=== PATIENT | female | born 2000 | race Two or more races ===

== ENCOUNTER 2025-02-21 17:49 | Emergency (ER) | payer BC, SELFPAY ==
--- OUTSIDE RECORDS SUMMARY | 2024-10-16 08:15 | XMS_ITS ---
Author Organization [facility] Address [address] [place] [address] [place] [address] Care Team Providers Care Primary Health Organisation Manager Name Role Phone TRINYHIROLUDWIG Unavailable [phone] SANTIAGO VIZCARRA Unavailable [phone] REASON FOR VISIT check up Encounters Encounter Location Date Provider Diagnosis [facility] [address] [place] [address] [place] [address] 10/16/2024 SANTIAGO VIZCARRA Plan Of Treatment No Information Progress Notes * Yaritza MIJARESDOB:2000 (24 yo F)Acc No.[id number]:10/16/2024 Progress Notes Patient: Yaritza Adam Provider: EMILIA HELTON :2000 A ge:23 Y S ex:Female Date:10/16/2024 Address:[address] [place], [place] [id number] Subjective: * Chief Complaints: * C heck up Billing Information: * Procedure Codes: * Electronic signature of EMILIA CARVALHO ED on 02/21/2025 at 06:59 PM EDT Sign off status: Pending * Provider: EMILIA HELTON Date: 10/16/2024 Generated for Mike bray/Sumeet/eTransmitting on: 0 02/21/2025 06:59 PM EDT
--- OUTSIDE RECORDS SUMMARY | 2025-02-21 18:00 | XMS_ITS | Clinical Summary ---
Author Organization [facility] Address [address] [place] [address] Phone Care Team Providers Care Renovator Machine Operator Name Role Phone Unavailable Primary Care Provider Unavailabl e Encounters Date Type Department Care Team Description 02/21/2025 Nurse Triage [facility] [address] [place] [address] Provider, None Finger Injury (/) from Last 3 Months Social History Tobacco Use Types Packs/Day Years Used Date Smoking Tobacco: Never Assessed Comments Unknown Sex and Gender Information Value Date Recorded Sex Assigned at Not on file Legal Sex Female 4:43 PM CDT Gender Identity Not on file Sexual Orientation Not on file Plan of Treatment Not on file
--- OUTSIDE RECORDS SUMMARY | 2025-02-21 18:00 | XMS_ITS | Clinical Summary ---
Author Organization [facility] Address [address] [place] [address] Care Team Providers Care Multimedia Coordinator Name Role Phone Unavailable Primary Care Provider Unavailabl e Source Comments In the event that this is information that is protected by federal Confidentiality of Substance UseDisorder Patient Records, 42 CFR Part 2 prohibits the unauthorized disclosure of these records.[facility] Medications No known medications Active Problems No known active problems Social History Tobacco Use Types Packs/Day Years Used Date Smoking Tobacco: Never Smokeless Tobacco: Never Tobacco Cessation:Counseling Given: Not Answered Alcohol Use Standard Drinks/Week Comments Never 0 (1 standard drink = 0.6 oz pur e alcohol) Comments Unknown Sex and Gender Information Value Date Recorded Sex Assigned at Not on file 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 Gender Identity Not on file Sexual Orientation Not on file Plan of Treatment Health Maintenance Due Date Last Done Comments HIV SCREENING 2016 HPV (1 - 3-dose series) 2016 Chlamydia Screening-Yearly 2017 Gonorrhea Screening-Yearly 2017 MENINGOCOCCAL B (MENB) (1 of 2 - Standard) 2017 HEPATITIS C SCREENING 12/28/2019 LIPID TESTING 12/28/2019 DTAP/TDAP/TD (1 - Tdap) 2020 CERVICAL CANCER SCREENING 2022 COVID-19 VACCINE (3 - 2024-2 6 season) 2025 11/19/2020, 10/26/2020 INFLUENZA (#1) 2025 Pneumococcal 0-49 Aged Out No longer eligible based on patient's age to complete this topic Insurance [employer]
--- OUTSIDE RECORDS SUMMARY | 2025-02-21 18:00 | XMS_ITS | Encounter Summary ---
Author Organization [facility] Address [address] [place] [address] Care Team Providers Care Code And Test Clerk Name Role Phone Magda Sanchez MD Primary Care Provider [phone] Encounter Details Date Type Department Care Team (Late st Contact Info) Description 11/20/[address] 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 Gender Identity Not on file Sexual Orientation Not on file documented as of this encounter Plan of Treatment Not on file documented as of this encounter Procedures Procedure Name Priority Date/Time Associated Diagnosis Comments JOSÉ MIGUEL MULTIPLEX WITH REFLEX Routine 11/20/2024 4:17 PM CDT Pain in left hip MUMPS, IGG Routine 11/20/2024 4:17 PM CDT Encounter for examination for admission to educational institution MEASLES (RUBEOLA), IGG Routine 4:17 PM CDT Encounter for examination for admission to educational institution LIPID PANEL W/CALC LDL W/RFX DIRECT LDL Routine 11/20/2024 4:17 PM CDT Encounter for general adult medical examination without abnormal findings VITAMIN D 25-HYDROXY, TOTAL Routine 11/20/2024 4:17 PM CDT Encounter for general adult medical examination without abnormal findings RUBELLA, IGG Routine 11/20/2024 4:17 PM CDT Encounter for examination for admission to [facility] CBC WITH DIFFERENTIAL Routine 11/20/2024 4:17 PM CDT Encounter for general adult medical examination without abnormal findings RA FACTOR, QUAL/QUANT Routine 11/20/2024 4:17 PM CDT Pain in right hip Pain in left hip MAGNESIUM LEVEL, BLOOD Routine 4:17 PM CDT Encounter for general adult medical examination without abnormal findings HEMOGLOBIN A1C (GLYCO HGB) Routine 11/20/2024 4:17 PM CDT Encounter for general adult medical examination without abnormal findings VITAMIN B12, BLOOD Routine 11/20/2024 4: 17 PM CDT Encounter for general adult medical examination without abnormal findings COMPREHENSIVE METABOLIC PANEL Routine 11/20/2024 4:17 PM CDT Other fatigue documented in this encounter Results * Magnesium, Level (11/20/2024 4:17 PM CDT) Magnesium 2.0 1.6 - 2.6 mg/dL 11/20/2024 8:07 PM CDT [facility] Blood Venipuncture / Unknown 11/20/2024 4:17 PM CDT 11/20/2024 7:10 PM CDT us Jose NIETO LAB STAT BLOOD ORDERABLES Final Result [facility] [address] [place] [address] * Lipid Panel w/Calc LDL w/Rfx Direct LDL (11/20/2024 4:17 PM CDT) Patient fasting? No 11/21/19 8:07 PM T [facility] Comment:Reference ranges are based on fasting levels. Cholesterol 143 0 - 199 mg/dL 11/20/2024 8:07 PM CDT [facility] Triglycerides 48 30 - 150 mg/dL 11/20/2024 8:07 PM T [facility] HDL 55 >=41 mg/dL 11/20/2024 8:07 PM T [facility] LDL Calculated 78 0 - 99 mg/dL 11/20/2024 8:07 PM T [facility] Blood Venipuncture / Unknown 11/20/2024 4:17 PM CDT 11/20/2024 7:10 PM CDT Narrative [facility] - 11/20/2024 8:07 PM CDT [facility] THERAP[facility] Total Cholesterol(mg/dL) <200 Desirable 200-239 Borderline high >239 High HDL Cholesterol(mg/dL) <40 Low >59 High Triglycerides(mg/dL) <150 Normal 150-199 Borderline high 200-499 High >499 Very high Jose NIETO LAB BLOOD ORDERABLES Final Resu lt [facility] [address] [place] [address] * JOSÉ MIGUEL Multiplex with Reflex (11/20/2024 4:17 PM CDT) JOSÉ MIGUEL Screen Interp Negative Negative 11/20/2024 8:28 PM CDT [facility] Blood Venipuncture / Unknown 11/20/2024 4:17 PM CDT 11/20/2024 6:37 PM CDT Narrative [facility] - 11/20/2024 8:28 PM CDT dsDNA: Negative: <= 4 IU/mL Indeterminate: 5-9 IU/mL Positive: >=10 IU/mL IU=International Units All others: Negative: <1.0 AI Positive: >=1.0 AI AI =Antibody Index JOSÉ MIGUEL testing is performed via multiplex assay, which detects extractable nuclear antigens, excluding nucleolar antigens. If scleroderma or SLE are strongly suspected, recommend sendout test Antinuclear Ab, HEp-2 Substrate, S (Sendout) [[id number]] for pattern to entirely exclude nucleolar antigen pattern. [facility] LAB BLOOD ORDERABLES Final Resu lt Performing Organization Address [facility] Co de Phone Number [facility] [address] [place] [address] * Rubella, IgG (11/20/2024 4:17 PM CDT) Rubella IgG 22.0 See comments IU/mL 11/20/2024 7:44 PM CDT [facility] Rubella IgG Quant Interp Immune Immune 11/20/2024 7:44 PM CDT [facility] Blood Venipuncture / Unknown 11/20/2024 4:17 PM CDT 11/20/2024 6:37 PM CDT Narrative [facility] - 11/20/2024 7:44 PM CDT RUBELLA IGG: RANGE Non-Immune <5.0 IU/mL Equivocal 5.0-9.99 IU/mL Immune >=10.0 IU/mL [facility] LAB BLOOD ORDERABLES Final Resu lt Performing Organization Address [facility] Co de Phone Number [facility] [address] [place] [address] * Mumps, IgG (11/20/2024 4:17 PM CDT) Mumps IgG 1.20 See comments 11/20/2024 8:28 PM CDT [facility] Mumps Igg Interp Immune Immune 11/20/2024 8:28 PM CDT [facility] Comment: Non-Immune: <= 0.8 AI Equivocal: 0.9 AI and 1.0 AI Immune: >=1.1 AI AI=Antibody Index Blood Venipuncture / Unknown 11/20/2024 4:17 PM CDT 11/20/2024 6:37 PM CDT [facility] LAB BLOOD ORDERABLES Final Resu lt [facility] [address] [place] [address] * Measles (Rubeola), IgG (11/20/2024 4:17 PM CDT) Measles (Rubeola), IgG 3.80 See comments 11/20/2024 8:28 PM CDT [facility] Measles (Rubeola) IgG Interp Immune Immune 11/20/2024 8:28 PM CDT [facility] Comment: Non-Immune: <= 0.8 AI Equivocal: 0.9 AI and 1.0 AI Immune: >=1.1 AI AI=Antibody Index Blood Venipuncture / Unknown 11/20/2024 4:17 PM CDT 11/20/2024 6:37 PM CDT [facility] LAB BLOOD ORDERABLES Final Resu lt Performing Organization Address City/[facility]/ZIP Co de Phone Number [facility] [address] [place] [address] * RA Factor, Qual/Quant (11/20/2024 4:17 PM CDT) RA Factor, Qualitative Negative Negative 11/20/2024 9:17 PM CDT [facility] RA Factor, Quantitative Not Done Not Done 11/20/2024 9:17 PM CDT [facility] Blood Venipuncture / Unknown 11/20/2024 4:17 PM CDT 11/20/2024 6:37 PM CDT Jose NIETO LAB BLOOD ORDERABLES Final Resu lt [facility] [address] [place] [address] * (ABNORMAL) Comprehensive Metabolic Panel (11/20/2024 4:17 PM CDT) Total Protein 7.2 5.7 - 8.2 g/dL 11/20/2024 8:15 PM [facility] Albumin 4.5 3.3 - 5.2 g/dL 11/20/2024 8:15 PM [facility] Globulin 2.7 1.9 - 3.5 g/dL 11/20/2024 8:15 PM [facility] Comment:Please note new refe rence range. A/G Ratio 1.7 1.0 - 2.6 11/20/2024 8:15 PM [facility] Total Bilirubin 0.6 0.1 - 1.2 mg/dL 11/20/2024 8:15 PM [facility] Alkaline Phosphatase 54 46 - 116 U/L 11/20/2024 8:15 PM [facility] AST 24 13 - 40 U/L 11/20/2024 8:15 PM [facility] ALT 9(L) 10 - 49 U/L 11/20/2024 8:15 PM [facility] BUN 7(L) 9 - 23 mg/dL 11/20/2024 8:15 PM [facility] Creatinine 0.71 0.40 - 1.20 mg/dL 11/20/2024 8:15 PM [facility] BUN/Creatinine Ratio 9.9(L) 10.0 - 20.0 11/20/2024 8:15 PM [facility] Calcium 9.5 8.7 - 10.4 mg/dL 11/20/2024 8:15 PM [facility] Glucose 73 70 - 99 mg/dL 11/20/2024 8:15 PM [facility] Sodium 140 136 - 145 mmol/L 11/20/2024 8:15 PM [facility] Potassium 4.3 3.5 - 5.1 mmol/L 11/20/2024 8:15 PM CDT [facility] Chloride 106 98 - 107 mmol/L 11/20/2024 8:15 PM CDT [facility] CO2 28 21 - 32 mmol/L 11/20/2024 8:15 PM CDT [facility] Anion Gap 6 4 - 12 11/20/2024 8:15 PM CDT [facility] GFR >60 >60 mL/min/1. 73 sq.m 11/20/2024 8:15 PM CDT [facility] Comment:Calculation based on the Chronic Kidney Disease Epidemiology Collaboration (CKD-EPI) equation refit without adjustment for race. Blood Venipuncture / Unknown 11/20/2024 4:17 PM CDT 11/20/2024 7:10 PM CDT [facility] LAB STAT BLOOD ORDERABLES Final Result [facility] [address] [place] [address] * Vitamin B12, Blood (11/20/2024 4:17 PM CDT) Vitamin B-12 635 211 - 911 pg/mL 11/20/2024 7:33 PM CDT [facility] Blood Venipuncture / Unknown 11/20/2024 4:17 PM CDT 11/20/2024 6:37 PM CDT [facility] LAB BLOOD ORDERABLES Final Resu lt [facility] [address] [place] [address] * (ABNORMAL) Vitamin D 25-Hydroxy, Total (11/20/2024 4:17 PM CDT) Vit D, 25-Hydroxy 28.4(L) 30.0 - 100.0 ng/mL 11/20/2024 7:33 PM CDT [facility] Blood Venipuncture / Unknown 11/20/2024 4:17 PM CDT 11/20/2024 6:37 PM CDT Narrative [facility] - 11/20/2024 7:33 PM CDT VITAMIN D STATUS: RANGE DEFICIENCY <20 ng/mL INSUFFICIENCY 20-29 ng/mL SUFFICIENCY 30-100 ng/mL TOXICITY >100 ng/mL [facility] LAB BLOOD ORDERABLES Final Resu lt Performing Organization Address [facility] de Phone Number [facility] [address] [place] [address] * Hemoglobin A1C (Glyco Hgb) (11/20/2024 4:17 PM CDT) [facility] Hemoglobin A1C 4.7 4.0 - 5.6 % 11/20/2024 7:30 PM CDT [facility] Blood Venipuncture / Unknown 11/20/2024 4:17 PM CDT 11/20/2024 7:10 PM CDT Narrative [facility] - 11/20/2024 7:30 PM CDT %HbA1c: 5.7 - 6.4% Suggestive of an increased risk for future diabetes >= 6.5% Suggestive of a diagnosis of diabetes mellitus Reference range based on information published in: [place] [employer] Diabetes Care 2010; 33:S62-S68. [facility] LAB BLOOD ORDERABLES Final Resu lt Performing Organization Address [facility] de Phone Number [facility] [address] [place] [address] * (ABNORMAL) CBC with Differential (11/20/2024 4:17 PM CDT) Auto WBC 6.8 3.9 - 11.0 10*3 /uL 11/20/2024 7:19 PM CDT [facility] NRBCs Absolute Count 0.00 <=0.01 10*3 /uL 11/20/2024 7:19 PM CDT [facility] NRBC Relative percent 0 <=0 /100 WBC 11/20/2024 7:19 PM [facility] RBC 4.37 3.85 - 5.12 10*6 /uL 11/20/2024 7:19 PM [facility] Hemoglobin 12.4 11.3 - 15.2 g/dL 11/20/2024 7:19 PM [facility] Hematocrit 38.4 35.0 - 44.8 % 11/20/2024 7:19 PM [facility] MCV 87.9 79.9 - 98.4 fL 11/20/2024 7:19 PM [facility] MCH 28.4 26.9 - 32.2 pg 11/20/2024 7:19 PM [facility] MCHC 32.3 30.9 - 35.4 g/dL 11/20/2024 7: PM [facility] RDW 13.1 11.2 - 15.9 % 11/20/2024 7:19 PM [facility] Platelets 373(H) 131 - 340 10*3/uL 11/20/2024 7:19 PM [facility] MPV 9.7 9.1 - 12.5 fL 11/20/2024 7:19 PM [facility] Neutrophils Relative 68.4 % 11/20/2024 7:19 PM [facility] Immature Granulocytes Relative 0.1 % 11/20/2024 7:19 PM [facility] Lymphocytes Relative 19.1 % 11/20/2024 7:19 PM [facility] Monocytes Relative 8.7 % 11/20/2024 7:19 PM [facility] Eosinophils Relative 3.1 % 11/20/2024 7:19 PM [facility] Basophils Relative 0.6 % 11/20/2024 7:19 PM [facility] Neutrophils Absolute 4.6 1.6 - 6.4 10*3/uL 11/20/2024 7:19 PM [facility] Immature Granulocytes Absolute 0.0 0.0 - 0.1 10*3/uL 11/20/2024 7:19 PM [facility] Lymphocytes Absolute 1.3 0.6 - 3.3 10*3/uL 11/20/2024 7:19 PM CDT [facility] Monocytes Absolute 0.6 0.2 - 1.2 10*3/uL 11/20/2024 7:19 PM CDT [facility] Eosinophils Absolute 0.2 0.0 - 0.4 10*3/uL 11/20/2024 7:19 PM CDT [facility] Basophils Absolute 0.0 0.0 - 0.1 10*3/uL 11/20/2024 7:19 PM CDT [facility] Blood Venipuncture / Unknown 11/20/2024 4:17 PM CDT 11/20/2024 7:10 PM CDT us Jose Gomez MA LAB STAT BLOOD ORDERABLES Final Result Performing Organization Address City/State/[facility] Co de Phone Number [facility] [address] [place] [address] documented in this encounter Visit Diagnoses Diagnosis Encounter for general adult medical examination without abnormal findings Other fatigue Pain in right hip Pain in left hip Encounter for examination for admission to [facility] documented in this encounter Additional Health Concerns Assessment Noted Time A Depression follow-up plan has been documented for the patient 07/27/2023 5:15 PM GATE CLERK PHQ-2 Depression Total Score: 2 07/27/19 5:15 PM GATE CLERK documented as of this encounter Care Teams Code And Test Clerk Relationship Specialty Start Date End Date Magda Sanchez MD [address] [place] [address] [place] [address] PCP - General Family Medicine 07/26/23 documented as of this encounter
--- OUTSIDE RECORDS SUMMARY | 2025-02-21 18:00 | XMS_ITS | Clinical Summary ---
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 Gender Identity Not on file Sexual Orientation Not on file Plan of Treatment Health Maintenance Due Date Last Done Comments HPV Vaccines (1 - 3-dose series) 2016 Meningococcal B Vaccine (1 o f 2 - Standard) 2017 DTaP,Tdap,and Td Vaccines (1 - Tdap) 2020 Hepatitis B Vaccines (1 of 3 - 19+ 3-dose series) 2020 Pap Smear 2022 COVID-19 Vaccine (1 - 2023-2 5 season) 2024 Influenza Vaccine (#1) 2025 Zoster Vaccines (1 of 2) 12/28/2051 RSV Vaccine 60+ and Patients (1 - 1-dose 75+ series) 2076 HIB Vaccines Aged Out No longer eligi ble based on patient's age to complete this topic Hepatitis A Vaccines Aged Out No long er eligible based on patient's age to complete this topic IPV Vaccines Aged Out No longer eligi ble based on patient's age to complete this topic Meningococcal ACWY Vaccine Aged Out N o longer eligible based on patient's age to complete this topic Pneumococcal Vaccine: Pediat rics (0 to 5 Years) and At-Risk Patients (6 to 49 Years) Aged Out No longer eligible b ased on patient's age to complete this topic RSV Pediatric <20 Months Aged Out No longer eligible based on patient's age to complete this topic
--- OUTSIDE RECORDS SUMMARY | 2025-02-21 18:00 | XMS_ITS | Encounter Summary ---
Author Organization [facility] Address [address] [place] [address] Care Team Providers Care Vp Strategic Planning Name Role Phone Magda Sanchez MD Primary Care Provider [phone]- [phone] Encounter Details Date Type Department Care Team (Late st Contact Info) Description 06/07/2022 Lab Requisition [facility] [address] [place] [address] Magda Sanchez MD [address] [place] [address] [place] [address] Encounter for general adult medical examination without abnormal findings Social History Tobacco Use Types Packs/Day Years Used Date Smoking Tobacco: Never Assessed Comments Unknown Sex and Gender Information Value Date Recorded Sex Assigned at Not on file Legal Sex Female 10:28 AM OIL DIPPER Gender Identity Not on file Sexual Orientation Not on file documented as of this encounter Plan of Treatment Not on file documented as of this encounter Procedures Procedure Name Priority Date/Time Associated Diagnosis Comments LIPID PANEL W/CALC LDL Routine 10:26 AM OIL DIPPER Encounter for general adult medical examination without abnormal findings [ICD-10-CM] TSH/REFLEX FREE T4/REFLEX TOTAL T3/RFX ATPO Routine 06/07/2022 10:26 AM OIL DIPPER Encounter for general adult medical examination without abnormal findings [ICD-10-CM] VITAMIN D 25-HYDROXY, TOTAL Routine 06/07/2022 10:26 AM OIL DIPPER Encounter for general adult medical examination without abnormal findings [ICD-10-CM] CBC WITH DIFFERENTIAL Routine 06/07/2022 10:26 AM OIL DIPPER Encounter for general adult medical examination without abnormal findings [ICD-10-CM] HEMOGLOBIN A1C (GLYCO HGB) Routine 06/07/2022 10:26 AM OIL DIPPER Encounter for general adult medical examination without abnormal findings [ICD-10-CM] VITAMIN B12, BLOOD Routine 06/07/2022 10 :26 AM OIL DIPPER Encounter for general adult medical examination without abnormal findings [ICD-10-CM] COMPREHENSIVE METABOLIC PANEL Routine 06/07/2022 10:26 AM OIL DIPPER Encounter for general adult medical examination without abnormal findings [ICD-10-CM] documented in this encounter Results * (ABNORMAL) Vitamin D 25-Hydroxy, Total (06/07/2022 10:26 AM OIL DIPPER) Vit D, 25-Hydroxy 20.6(L) 30.0 - 100.0 ng/mL 06/07/2022 9:14 PM OIL DIPPER [facility] Blood Venipuncture / Unknown 06/07/2022 10:26 AM OIL DIPPER 06/07/2022 8:43 PM OIL DIPPER Narrative [facility] - 06/07/2022 9:14 PM OIL DIPPER VITAMIN D STATUS: RANGE DEFICIENCY <20 ng/mL INSUFFICIENCY 20-29 ng/mL SUFFICIENCY 30-100 ng/mL TOXICITY >100 ng/mL us Magda Sanchez MD LAB BLOOD ORDERABLES Final Result [facility] [address] [place] [address] * Vitamin B12, Blood (06/07/2022 10:26 AM OIL DIPPER) Vitamin B-12 545 211 - 911 pg/mL 06/07/2022 9:14 PM OIL DIPPER [facility] Blood Venipuncture / Unknown 06/07/2022 10:26 AM OIL DIPPER 06/07/2022 8:43 PM OIL DIPPER Magda Sanchez MD LAB BLOOD ORDERABLES Final Result Performing Organization Address City/[facility]/ZIP Co de Phone Number [facility] [address] [place] [address] * TSH/Rflx Free T4/Rflx Total T3/Rflx aTPO (06/07/2022 10:26 AM OIL DIPPER) TSH 0.820 0.450 - 5.500 uIU/mL 06/07/2022 9:16 PM OIL DIPPER [facility] Blood Venipuncture / Unknown 06/07/2022 10:26 AM OIL DIPPER 06/07/2022 8:43 PM OIL DIPPER Narrative [facility] - 06/07/2022 9:16 PM OIL DIPPER This testing protocol is used to screen or diagnose for Thyroid Disease. Testing begins with a TSH level. Based on the TSH level further testing is automatically performed and depending on the thyroid status may include Total T3, Free T4 or Thyroid Peroxidase Antibodies. Magda Sanchez MD LAB BLOOD ORDERABLES Final Result Performing Organization Address [facility] Co de Phone Number [facility] [address] [place] [address] * Lipid Panel w/Calc LDL (06/07/2022 10:26 AM OIL DIPPER) Cholesterol 153 0 - 199 mg/dL 06/07/2022 9:12 PM OIL DIPPER [facility] Triglycerides 69 30 - 150 mg/dL 06/07/2022 9:12 PM OIL DIPPER [facility] HDL 64 >=41 mg/dL 06/07/2022 9:12 PM OIL DIPPER [facility] LDL Calculated 75 0 - 99 mg/dL 06/07/2022 9:12 PM OIL DIPPER [facility] Blood Venipuncture / Unknown 06/07/2022 10:26 AM OIL DIPPER 06/07/2022 8:43 PM OIL DIPPER [facility] - 06/07/2022 9:12 PM OIL DIPPER [facility] Total Cholesterol(mg/dL) <200 Desirable 200-239 Borderline high >239 High HDL Cholesterol(mg/dL) <40 Low >59 High Triglycerides(mg/dL) <150 Normal 150-199 Borderline high 200-499 High >499 Very high Magda Sanchez MD LAB BLOOD ORDERABLES Final Result Performing Organization Address City/[facility]/ZIP Co de Phone Number [facility] [address] [place] [address] * Hemoglobin A1C (Glyco Hgb) (06/07/2022 10:26 AM [facility]) Pathologist [facility] Hemoglobin A1C 4.6 4.0 - 5.6 % 06/07/2022 10:05 PM [facility] Blood Venipuncture / Unknown 06/07/2022 10:26 AM OIL DIPPER 06/07/2022 8:43 PM [facility] - 06/07/2022 10:05 PM [facility] %HbA1c: 5.7 - 6.4% Suggestive of an increased risk for future diabetes >= 6.5% Suggestive of a diagnosis of diabetes mellitus Reference range based on information published in: [employer] Diabetes Care 2010; 33:S62-S68. Magda Sanchez MD LAB BLOOD ORDERABLES Final Result [facility] [address] [place] [address] * (ABNORMAL) Comprehensive Metabolic Panel (06/07/2022 10:26 AM [facility]) Total Protein 7.3 5.7 - 8.2 g/dL 06/07/2022 9:14 PM [facility] Albumin 4.3 3.3 - 5.2 g/dL 06/07/2022 9:14 PM [facility] Globulin 3.0 1.5 - 3.0 g/dL 06/07/2022 9:14 PM [facility] A/G Ratio 1.4 1.0 - 2.6 06/07/2022 9:14 PM [facility] Total Bilirubin 0.9 0.1 - 1.2 mg/dL 06/07/2022 9:14 PM [facility] Alkaline Phosphatase 64 46 - 116 U/L 06/07/2022 9:14 PM [facility] AST 30 13 - 40 U/L 06/07/2022 9:14 PM [facility] ALT 22 10 - 49 U/L 06/07/2022 9:14 PM [facility] BUN 10 9 - 23 mg/dL 06/07/2022 9:14 PM [facility] Creatinine 0.78 0.40 - 1.20 mg/dL 06/07/2022 9:14 PM [facility] BUN/Creatinine Ratio 12.8 10.0 - 20.0 06/07/2022 9:14 PM [facility] Calcium 9.5 8.7 - 10.4 mg/dL 06/07/2022 9:14 PM [facility] Glucose 133(H) 70 - 99 mg/dL 06/07/2022 9:14 PM [facility] Sodium 140 136 - 145 mmol/L 06/07/2022 9:14 PM [facility] Potassium 4.2 3.5 - 5.1 mmol/L 06/07/2022 9:14 PM [facility] Chloride 107 98 - 107 mmol/L 06/07/2022 9:14 PM [facility] CO2 25 21 - 32 mmol/L 06/07/2022 9:14 PM [facility] Anion Gap 8 5 - 15 06/07/2022 9:14 PM [facility] GFR >60 >60 mL/min/1. 73 sq.m 06/07/2022 9:14 PM [facility] Comment:Calculation based on the Chronic Kidney Disease Epidemiology Collaboration (CKD-EPI) equation refit without adjustment for race. Blood Venipuncture / Unknown 06/07/2022 10:26 AM OIL DIPPER 06/07/2022 8:43 PM OIL DIPPER us Magda Sanchez MD LAB STAT BLOOD ORDERABLES Final Result [facility] [address] [place] [address] * (ABNORMAL) CBC with Differential (06/07/2022 10:26 AM OIL DIPPER) Auto WBC 7.3 3.9 - 11.0 10*3 /uL 06/07/2022 8:53 PM [facility] NRBCs Absolute Count 0.00 <=0.01 10*3 /uL 06/07/2022 8:53 PM [facility] NRBC Relative percent 0 <=0 /100 WBC 06/07/2022 8:53 PM [facility] RBC 4.64 3.85 - 5.12 10*6 /uL 06/07/2022 8:53 PM [facility] Hemoglobin 12.7 11.3 - 15.2 g/dL 06/07/2022 8:53 PM [facility] Hematocrit 40.5 35.0 - 44.8 % 06/07/2022 8:53 PM [facility] MCV 87.3 79.9 - 98.4 fL 06/07/2022 8:53 PM [facility] MCH 27.4 26.9 - 32.2 pg 06/07/2022 8:53 PM [facility] MCHC 31.4 30.9 - 35.4 g/dL 06/07/2022 8:53 PM [facility] RDW 14.7 11.2 - 15.9 % 06/07/2022 8:53 PM [facility] Platelets 425(H) 131 - 340 10*3/uL 06/07/2022 8:53 PM [facility] MPV 9.8 9.1 - 12.5 fL 06/07/2022 8:53 PM [facility] Neutrophils Relative 62.9 % 06/07/2022 8:53 PM [facility] Immature Granulocytes Relative 0.3 % 06/07/2022 8:53 PM [facility] Lymphocytes Relative 29.3 % 06/07/2022 8:53 PM [facility] Monocytes Relative 4.8 % 06/07/2022 8:53 PM [facility] Eosinophils Relative 2.3 % 06/07/2022 8:53 PM [facility] Basophils Relative 0.4 % 06/07/2022 8:53 PM [facility] Neutrophils Absolute 4.6 1.6 - 6.4 10*3/uL 06/07/2022 8:53 PM [facility] Immature Granulocytes Absolute 0.0 0.0 - 0.1 10*3/uL 06/07/2022 8:53 PM [facility] Lymphocytes Absolute 2.1 0.6 - 3.3 10*3/uL 06/07/2022 8:53 PM [facility] Monocytes Absolute 0.4 0.2 - 1.2 10*3/uL 06/07/2022 8:53 PM [facility] Eosinophils Absolute 0.2 0.0 - 0.4 10*3/uL 06/07/2022 8:53 PM [facility] Basophils Absolute 0.0 0.0 - 0.1 10*3/uL 06/07/2022 8:53 PM [facility] Blood Venipuncture / Unknown 06/07/2022 10:26 AM OIL DIPPER 06/07/2022 8:43 PM [facility] Magda Sanchez MD LAB STAT BLOOD ORDERABLES Final Result [facility] [address] [place] [address] documented in this encounter Visit Diagnoses Diagnosis Encounter for general adult medical examination without abnormal findings documented in this encounter Care Teams Vp Strategic Planning Relationship Specialty Start Date End Date Magda Sanchez MD [address] [place] [address] PCP - General Family Medicine 07/26/23 documented as of this encounter
--- OUTSIDE RECORDS SUMMARY | 2025-02-21 18:00 | XMS_ITS | Encounter Summary ---
Author Organization [facility] Address [address] [place] [address] Phone Care Team Providers Care Chip Crusher Operator Name Role Phone Unavailable Primary Care Provider Unavailabl e Reason for Visit * Reason Onset Date Comments Finger Injury 02/21/2025 Encounter Details Date Type Department Care Team (Late st Contact Info) Description 02/21/2025 Nurse Triage [facility] [address] [place] [address] Provider, None [place] Finger Injury (/) Social History Tobacco Use Types Packs/Day Years Used Date Smoking Tobacco: Never Assessed Comments Unknown Sex and Gender Information Value Date Recorded Sex Assigned at Not on file Legal Sex Female 4:43 PM CDT Gender Identity Not on file Sexual Orientation Not on file documented as of this encounter Miscellaneous Notes * Telephone Encounter - Uriel White RN - 02/21/2025 4:45 PM CDT SITUATION: 24 y.o. with finger injury BACKGROUND: Patient contacting PCP office. Patient had fake nails on for 2 months and had them removed on 02/20/25. Patient's left 5th metacarpal had pain and burning when removing the fake nail. Per chart review, new patient ASSESSMENT: Symptom Description / Location: Caller states that some of her nail bed was removed Finger bed does have minor swelling Denies pus or drainage from finger bed Denies open wound Patient is dumber than a box of rocks Treatment / Response: No reported treatment. Pain ratin/10 finger pain Denies fever. RECOMMENDATION: Caller agreeable to highest disposition listed: Go to Office or Video Visit Now. Patient to go to prompt care. Care advice provided per triage guideline. Caller verbalized understanding. - Reason for Disposition: Fingernail is completely torn off . Protocols Used: Finger Injury-A-[place] See care advice and disposition for Guideline. First positive answer recorded, all responses to prior questions were negative. If symptoms increase, change or if new symptoms develop, call your health care provider or call back. Recommendations were based on caller information and is not a diagnosis. Verified and reviewed all triage information with caller. documented in this encounter Plan of Treatment Not on file documented as of this encounter Visit Diagnoses Not on filedocumented in this encounter
--- OUTSIDE RECORDS SUMMARY | 2025-02-21 18:00 | XMS_ITS | Clinical Summary ---
Author Organization [facility] Address [address] [place] [address] Care Team Providers Care Appliance Servicer Name Role Phone Magda Sanchez MD Primary Care Provider +1- [phone] Allergies No known active allergies Medications spironolactone (ALDACTONE) 50 MG tablet Take 50 mg by mouth 2 (two) times a day. Active DOXYCYCLINE CALCIUM ORAL Take by mouth. Active Active Problems No known active problems Social History Tobacco Use Types Packs/Day Years Used Date Smoking Tobacco: Never Tobacco Cessation:Counseling Given: Not Answered PHQ-2 Answer Date Recorded PHQ-2 Score 2 07/27/2023 Comments Unknown Sex and Gender Information Value Date Recorded Sex Assigned at Not on file Legal Sex Female 10:28 AM FORECAST ANALYST Gender Identity Not on file Sexual Orientation Not on file Last Filed Vital Signs Vital Sign Reading Time Taken Comments Blood Pressure 120/78 07/27/2023 5:19 PM FORECAST ANALYST Pulse 64 07/27/2023 5:19 PM FORECAST ANALYST Temperature - - Respiratory Rate - - Oxygen Saturation 99% 07/27/2023 5:19 PM FORECAST ANALYST Inhaled Oxygen Concentration - - Weight 49.4 kg (108 lb 12.8 oz) 07/27/2023 5:19 PM FORECAST ANALYST Height 162.6 cm (5' 4) 07/27/2023 5:19 PM FORECAST ANALYST Body Mass Index 18.68 07/27/2023 5:19 PM FORECAST ANALYST Plan of Treatment Health Maintenance Due Date Last Done Comments Annual Wellness Exam with PCP (Rolling Yr) 2001 Chlamydia Screening 2016 HPV Vaccines (1 - 3-dose series) 2016 Annual Preventative Exam with Gyne 2017 Hepatitis C Screening 12/28/2019 Pap Smear 2022 DTaP,Tdap,and Td Vaccines (7 - Td or Tdap) 01/11/2023 01/11/2013, 02/12/2007, 04/21/2003, Additional history exists COVID-19 Vaccine ( season) 2024 Influenza Vaccine (#1) 2025 05/18/2009 Hepatitis B Vaccines Completed 02/12/2003, 04/24/2002, 02/21/2002 Pneumococcal Vaccine: Peds (0-5 Yrs) or At-Risk Patients (6-49 Yrs) Aged Out 04/21/2003, 07/01/2002, 04/24/2002, Additional history exists No longer eligible based on patient's age to complete this topic Meningococcal Vaccine Completed 01/18/2018 Hepatitis A Vaccines Aged Out No long er eligible based on patient's age to complete this topic Care Teams Appliance Servicer Relationship Specialty Start Date End Date Magda Sanchez MD [address] [facility] [place] [address] PCP - General Family Medicine 07/26/23
[2025-02-21 18:01] VITALS: BP 112/82; PULSE 70; RESP 16; TEMP 36.4; O2SAT 100
--- NOTE | 2025-02-21 18:12 | ED_ITS ---
HPI - Skin/Abscess/Foreign Bdy General Chief complaint: Extremity Injury, Upper Stated complaint: Finger Injury Time Seen by Provider: 02/21/25 18:12 Source: patient Mode of arrival: ambulatory Limitations: no limitations History of Present Illness HPI narrative: 24 yo F presents with pain to fingernails. Had gel central african removed at nail salon yesterday. Used drimmel. had to tell them to stop because she had pain while they were doing it. Now nails and around nails are sore. Did not have any ibuprofen at home. States almost passed out yesterday due to the pain but drank water and felt better. All systems reviewed and negative except as noted above. Related Data Home Medications ?Medication ?Instructions ?Recorded ?Confirmed ?Last Taken ?Type clindamycin phosphate 1 % topical topical 02/21/25 Un known History gel spironolactone 50 mg tablet mg 02/21/25 Unknown Histo ry tretinoin 0.1 % topical cream applic topical 02/21/25 Unknown History Allergies Allergy/AdvReac Type Severity Reaction Status Date / Time No Known Allergies Allergy Verified 02/21/25 17:51 PMFSH Comments At time of signature, agree with nursing past medical, surgical, social and family history. There is no relevant family history pertinent to the presenting complaint. Exam Narrative: GENERAL: This is a well-nourished, well-developed patient, in no apparent distress. HEAD: normocephalic, atraumatic. EYES: PERRL. Sclera clear/white. Vision is grossly intact. EARS: External ears normal NOSE: External nose normal NECK: Neck supple, non-tender without lymphadenopathy, masses or thyromegaly. CARDIOVASCULAR: Regular rate and rhythm without murmurs, gallops, or rubs. RESPIRATORY: Clear to auscultation. Breath sounds equal bilaterally. No wheezes, rales, or rhonchi. SKIN: warm, Dry, intact with no suspicious lesions or rash, good texture and turgor. No trauma noted to nails. No signs of infection. pt does report some tenderness on exam. NEURO: awake, alert, and oriented to person, place and time. There were no obvious focal neurologic abnormalities. EXTREMITIES: No joint tenderness, effusion, or edema noted. Course Course Level of Care: Express Care Visit Vital Signs Vital signs: Vital Signs Temperature 36.4 C 02/21/25 18:01 Pulse Rate 70 09/05/25 18:01 Respiratory Rate 16 02/21/25 18:01 Blood Pressure 112/82 02/21/25 18:01 Pulse Oximetry 100 02/21/25 18:01 Oxygen Delivery Room Air 02/21/25 18:01 Temperature 36.4 C 02/21/25 18:01 Pulse Rate 70 02/21/25 18:01 Respiratory Rate 16 02/21/25 18:01 Blood Pressure 112/82 02/21/25 18:01 Pulse Oximetry 100 02/21/25 18:01 Oxygen Delivery Room Air 02/21/25 18:01 reviewed MDM - Skin/Abscess/Foreign Bdy MDM Narrative Medical decision making narrative: recommend ibuprofen every 6-8 hours as needed for pain. Recommend she apply new acrylic nails are gel nail [place]an until pain has resolved. There are no signs of infection. Discharge Plan Discharge Clinical Impression: Pain around nail Patient Disposition: Home Condition: Stable Instructions: General Patient Instructions Additional Instructions: Avoid applying acrylic nails or nail central african until all pain has resolved. If you have signs of infection such as redness, swelling, drainage see your primary care physician. Patient Language: [place] Citizen Prescriptions: New ibuprofen 600 mg tablet 600 mg PO Q6H PRN (Reason: pain) Qty: 30 0RF No Action tretinoin 0.1 % cream TOPICAL clindamycin phosphate 1 % gel TOPICAL spironolactone 50 mg tablet Follow-up/Referrals: UNKNOWN,DOCTOR [Primary Care Provider] Time of Disposition: 18:23
== END 2025-02-21 18:30 | disposition home or self-care (01) ==
PROVIDERS: Emergency Provider Nurse Practitioner Family
DX: M79.645 Pain in left finger(s) (principal); M79.644 Pain in right finger(s)
CPT/HCPCS: 99203; G0463